=== PATIENT | female | born 1985 | race Caucasian/White ===

== ENCOUNTER 2023-12-31 05:33 | Inpatient (IN) | payer BC ==
[2023-12-27 13:07] VITALS: BMI 35.2
[2023-12-31] MEDS ORDERED: cefOXitin 2 GM VIAL ONE (06:28)
[2023-12-31] MEDS ORDERED: Sodium Chloride 0.9% 100 ML ONE (06:28)
[2023-12-31] MEDS ORDERED: Scopolamine 1 mg/72 hour Patch ONE (06:28)
[2023-12-31] MEDS ORDERED: EPINEPHrine 1 MG/ML VIAL ONE (06:41)
[2023-12-31] MEDS ORDERED: Bupivacaine 0.25% HCL 30 ML VIAL ONE ×2 (06:41→08:13)
[2023-12-31] MEDS ORDERED: Enoxaparin 40 MG (0.4 mL) SYRINGE ONE (06:41)
[2023-12-31] MEDS ORDERED: Lidocaine 1% PF 5 ML VIAL ONE (07:05)
[2023-12-31] MEDS ORDERED: Ketorolac Tromethamine 30 MG (1 mL) VIAL ONE (07:05)
[2023-12-31] MEDS ORDERED: Ondansetron PF 4 MG/2 ML Vial ONE (07:05)
[2023-12-31] MEDS ORDERED: PROPOFOL 20 ML ONE (07:05)
[2023-12-31] MEDS ORDERED: Dexamethasone 4 mg/ml Vial ONE (07:05)
[2023-12-31] MEDS ORDERED: fentaNYL PF 100 MCG/2 ML SYRINGE ONE ×4 (07:05→12:34)
[2023-12-31] MEDS ORDERED: Rocuronium Bromide 10 MG/ML (10ML VIAL) ONE (07:05)
[2023-12-31] MEDS ORDERED: Midazolam HCl 2 mg/2 ml Vial ONE (07:16)
[2023-12-31] MEDS ORDERED: fentaNYL 50 mcg/mL 1 mL Vial ONE ×2 (07:18→10:48)
[2023-12-31] MEDS ORDERED: Ipratropium/Albuterol 3 ML NEB NEB PRN (08:16)
[2023-12-31] MEDS ORDERED: Ondansetron PF 4 MG/2 ML Vial IVP PRN (08:16)
[2023-12-31] MEDS ORDERED: Promethazine HCl 25 MG/ML VIAL IM PRN (08:16)
[2023-12-31] MEDS ORDERED: diphenhydrAMINE 50 MG/ML VIAL IVP PRN (08:16)
[2023-12-31] MEDS ORDERED: Glucagon 1 MG/ML KIT IM PRN (08:16)
[2023-12-31] MEDS ORDERED: hydrALAZINE 20 MG/ML VIAL SLOW IVP PRN (08:16)
[2023-12-31] MEDS ORDERED: Dextrose 5% in Water 1,000 ML IV PRN (08:16)
[2023-12-31] MEDS ORDERED: Dextrose 50% Abboject 50 ML SYRINGE SLOW IVP PRN (08:16)
[2023-12-31] MEDS ORDERED: SUGAMMADEX SODIUM 200 MG/2 ML VIAL ONE (09:29)
[2023-12-31] MEDS ORDERED: D5 1/2 NS w/20 mEq KCL 1,000 ML ONE (10:18)
[2023-12-31] MEDS: D5 1/2 NS w/20 mEq KCL 1,000 ML IV SCH (10:19)
[2023-12-31] MEDS ORDERED: HYDROmorphone 0.5 MG/0.5 ML SYRINGE ONE ×2 (10:27→11:15)
[2023-12-31] MEDS: Pantoprazole 40 MG VIAL IVP SCH (15:47)
[2023-12-31] MEDS: Enoxaparin 40 MG (0.4 mL) SYRINGE SC SCH (15:47)
[2023-12-31] MEDS: Ketorolac Tromethamine 30 MG (1 mL) VIAL IVP SCH (15:47)
[2023-12-31] MEDS: traMADol HCl 50 MG TAB PO PRN (16:11)
[2023-12-31] MEDS: FLU VACC QS2023-24(6MOS UP)/PF 60 MCG/0.5 ML SYRINGE IM ONE (16:13)
[2023-12-31 18:56] LABS: #Monocytes 0.3 thou/uL (0.11-0.59); #Neutrophils 10.4 thou/uL (1.40-6.50); %Basophils 0.2 % (0.0-1.0); %Lymphocytes 5.8 % (21.0-51.0); %Monocytes 2.4 % (0.0-10.0); %Neutrophils 91.2 % (42.0-75.0); Hematocrit 40.1 % (36.0-47.0); Hemoglobin 13.2 g/dL (12.0-16.0); Mean Corpuscular HGB CONC 32.9 g/dL (32.0-36.0); Mean Corpuscular Hemoglobin 28.1 pg (27.0-31.0); Mean Corpuscular Volume 85.5 fl (78.0-98.0); Mean Platelet Volume 10.9 fL (7.4-10.4); Platelet Count 375 10x3/uL (130-400); RBC Distribution Width 13.5 % (11.5-14.5); Red Blood Cell (RBC) Count 4.69 mill/uL (4.20-5.40); White Blood Cell (WBC) Count 11.4 10x3/uL (4.8-10.8)
[2023-12-31 19:15] LABS: Anion Gap 12 mmol/L (10-20); BUN (Urea Nitrogen) 7 mg/dL (7.0-18.7); Calc. Creatinine Clearance 162 mL/min (70-130); Calcium 8.7 mg/dL (7.8-10.44); Carbon Dioxide 21 mmol/L (22-29); Chloride 104 mmol/L (98-107); Estimated GFR 103; Glucose 148 mg/dL (70-105); Potassium 4.2 mmol/L (3.5-5.1); Sodium 133 mmol/L (136-145)
[2024-01-01 11:25] VITALS: BP 104/72; TEMP 98.6
== END 2024-01-01 15:24 | disposition home or self-care (01) | DRG 621 ==
LOC: SURG A 05:33 → EDSTATUS 13:38 → SURG B 15:49
PROVIDERS: ADMIT Surgery; ATTEND Surgery
PROC: 0DB60Z3 Excision of Stomach, Open Approach, Vertical (ICD-10-PCS; principal; 2023-12-31)
PROC: 8E0W0CZ Robotic Assisted Procedure of Trunk Region, Open Approach (ICD-10-PCS; 2023-12-31)
PROC: 3E033XZ Introduction of Vasopressor into Peripheral Vein, Percutaneous Approach (ICD-10-PCS; 2023-12-31)
DX: E66.01 Morbid (severe) obesity due to excess calories (principal); E11.9 Type 2 diabetes mellitus without complications; Z68.35 Body mass index [BMI] 35.0-35.9, adult; G89.29 Other chronic pain; M54.9 Dorsalgia, unspecified; Z98.51 Tubal ligation status; M17.0 Bilateral primary osteoarthritis of knee; Z91.040 Latex allergy status; Z88.5 Allergy status to narcotic agent; Z79.899 Other long term (current) drug therapy
CPT/HCPCS: 36415; 80048; 85025; 88307; 94760; C9113; J0171; J0665; J0694; J1100; J1170; J1650; J1885; J2250; J2405; J2704; J3010; J3480; J3490